=== PATIENT | male | born 1960 | race Caucasian/White ===

== ENCOUNTER → 2016-12-02 | Outpatient (CLI) | payer MEDICAID | LOC: CIMAGING 10:22 | PROVIDERS: ATTEND Internal Medicine | DX: M19.072 Primary osteoarthritis, left ankle and foot (principal); M77.32 Calcaneal spur, left foot; E03.9 Hypothyroidism, unspecified; I10 Essential (primary) hypertension; M77.40 Metatarsalgia, unspecified foot | CPT/HCPCS: 73620-PO; 80061-PO; 84443-PO ==

== ENCOUNTER → 2017-09-30 | Outpatient (CLI) | payer BC | LOC: CIMAGING 14:07 | PROVIDERS: ATTEND Internal Medicine | DX: R93.3 Abnormal findings on diagnostic imaging of other parts of digestive tract (principal); K57.30 Diverticulosis of large intestine without perforation or abscess without bleeding; D18.03 Hemangioma of intra-abdominal structures | CPT/HCPCS: 74176-PO ==

== ENCOUNTER → 2017-10-17 | Outpatient (CLI) | payer BC | LOC: FIMAGING 08:09 | PROVIDERS: ATTEND Internal Medicine | DX: K57.31 Diverticulosis of large intestine without perforation or abscess with bleeding (principal) ==

== ENCOUNTER → 2018-03-28 | Outpatient (CLI) | payer BC | LOC: CIMAGING 13:35 | PROVIDERS: ATTEND Internal Medicine | DX: M79.645 Pain in left finger(s) (principal) | CPT/HCPCS: 73140-PO ==